=== PATIENT | male | born 1985 | race Caucasian/White ===

== ENCOUNTER 2024-04-27 17:22 | Inpatient (IN) | payer SELFPAY ==
[2024-04-27] MEDS: Diltiazem 25 MG/5 ML SDV IVPUSH ONE ×2 (18:30→19:08)
[2024-04-27] MEDS: Piperacillin/Tazobactam 4.5 GM in Sodium Chloride 0.9% 100 ML IV ONE (18:35)
[2024-04-27] MEDS: Sodium Chloride 0.9% 1,000 ML IV ONE (18:36)
[2024-04-27 18:40] LABS: BASOPHILS ABSOLUTE AUTO 0.1 K/mm3 (0.0-0.2); BASOPHILS PERCENT AUTO 0.4 % (0.0-1.0); EOSINOPHILS PERCENT AUTO 0.3 % (0.0-6.0); HEMATOCRIT 50.4 % (42.0-52.0); HEMOGLOBIN 17.5 gm/dl (14.0-18.0); IMMATURE GRAN ABSOLUTE AUTO 0.06 K/mm3 (0.00-0.05); IMMATURE GRAN PERCENT AUTO 0.4 % (0.0-0.4); LYMPHOCYTES ABSOLUTE AUTO 1.6 K/mm3 (1.0-4.8); LYMPHOCYTES PERCENT AUTO 10.5 % (24.0-44.0); MEAN CORPUSCULAR HEMOGLOBIN 30.7 pg (28.0-32.0); MEAN CORPUSCULAR HGB CONC 34.7 g/dl (32.0-36.0); MEAN CORPUSCULAR VOLUME 88.4 fl (83.0-99.0); MEAN PLATELET VOLUME 12.3 fl (9.4-12.4); MONOCYTES ABSOLUTE AUTO 1.1 K/mm3 (0.0-0.8); MONOCYTES PERCENT AUTO 7.1 % (0.0-8.0); NEUTROPHILS ABSOLUTE AUTO 12.7 K/mm3 (1.8-7.7); NEUTROPHILS PERCENT AUTO 81.3 % (41.0-71.0); PLATELET COUNT,PLT 279 K/mm3 (150-400)
[2024-04-27] MEDS: Lactated Ringers 1,000 ML IV ONE (18:54)
[2024-04-27 19:08] LABS: INR 1.13; PROTHROMBIN TIME 11.9 SECONDS (9.7-12.0)
[2024-04-27 19:09] LABS: PTT,PARTIAL THROMBOPLSTIN TIME 26.4 SECONDS (21.7-31.4)
[2024-04-27] MEDS: Sodium Chloride 0.9% 10 ML Syringe FLUSH PRN (19:09)
[2024-04-27 19:12] LABS: LACTIC ACID 1.1 mmol/L (0.4-2.0)
[2024-04-27 19:19] LABS: A/G RATIO 1.1 (1-2); ALBUMIN 3.3 g/dl (3.4-5.0); ANION GAP 13.6 (5-15); BILIRUBIN TOTAL 1.5 mg/dL (0.2-1.0); BUN/CREATININE RATIO 14.2 (14-18); CALCIUM 8.5 mg/dL (8.5-10.1); CREATININE 1.2 mg/dL (0.7-1.3); EST CRCL DRUG DOSING (CG) 91.83 mL/min; POTASSIUM,K 3.6 mEq/L (3.5-5.1); PROTEIN TOTAL,TP 6.3 g/dl (6.4-8.2); TSH 1.584 uIU/mL (0.358-3.74)
[2024-04-27] MEDS ORDERED: Ondansetron 4 MG Tab.DIS PO PRN (19:57)
[2024-04-27] MEDS: Diltiazem 125 MG in Sodium Chloride 0.9% 100 ML IV SCH (20:02)
[2024-04-27] MEDS ORDERED: Sodium Chloride 0.9% 1,000 ML IV SCH (20:15)
[2024-04-27] MEDS: VANCOmycin 1.5 GM/300 ML 300 ML IV SCH (23:06)
[2024-04-28] MEDS: Albuterol/Ipratropium 3.0-0.5 MG/3 ML Neb Soln NEB PRN (00:10)
[2024-04-28] MEDS: guaiFENesin 600 MG Tab.ER PO ONE (01:17)
[2024-04-28] MEDS: oxyCODONE 5 MG Tab PO PRN (01:17)
[2024-04-28 05:02] LABS: BASOPHILS ABSOLUTE AUTO 0.1 K/mm3 (0.0-0.2); BASOPHILS PERCENT AUTO 0.4 % (0.0-1.0); EOSINOPHILS PERCENT AUTO 0.1 % (0.0-6.0); HEMOGLOBIN 17.8 gm/dl (14.0-18.0); IMMATURE GRAN ABSOLUTE AUTO 0.07 K/mm3 (0.00-0.05); IMMATURE GRAN PERCENT AUTO 0.4 % (0.0-0.4); LYMPHOCYTES ABSOLUTE AUTO 1.4 K/mm3 (1.0-4.8); LYMPHOCYTES PERCENT AUTO 7.8 % (24.0-44.0); MEAN CORPUSCULAR HEMOGLOBIN 30.8 pg (28.0-32.0); MEAN CORPUSCULAR HGB CONC 34.9 g/dl (32.0-36.0); MEAN CORPUSCULAR VOLUME 88.2 fl (83.0-99.0); MEAN PLATELET VOLUME 12.9 fl (9.4-12.4); MONOCYTES ABSOLUTE AUTO 1.4 K/mm3 (0.0-0.8); MONOCYTES PERCENT AUTO 7.5 % (0.0-8.0); NEUTROPHILS ABSOLUTE AUTO 15.1 K/mm3 (1.8-7.7); NEUTROPHILS PERCENT AUTO 83.8 % (41.0-71.0); PLATELET COUNT,PLT 273 K/mm3 (150-400); RED BLOOD CELL COUNT 5.78 M/mm3 (4.52-5.90); WHITE BLOOD CELL COUNT,WBC 18.02 K/mm3 (3.9-11.3)
[2024-04-28 05:30] LABS: ALBUMIN 3.1 g/dl (3.4-5.0); ANION GAP 15.9 (5-15); BILIRUBIN TOTAL 1.9 mg/dL (0.2-1.0); BUN/CREATININE RATIO 12.3 (14-18); C-REACTIVE PROTEIN 0.97 mg/dL (<0.30); CALCIUM 8.3 mg/dL (8.5-10.1); CREATININE 1.3 mg/dL (0.7-1.3); EST CRCL DRUG DOSING (CG) 84.76 mL/min; POTASSIUM,K 3.9 mEq/L (3.5-5.1); PROTEIN TOTAL,TP 6.3 g/dl (6.4-8.2)
[2024-04-28 08:37] LABS: APPEARANCE,URINE CLEAR (Clear); BILIRUBIN,URINE 1+ (Negative); COLOR,URINE DARK YELLOW (Yellow); GLUCOSE,URINE NEGATIVE (Negative); KETONES,URINE 2+ (Negative); LEUKOCYTE ESTERASE,URINE NEGATIVE (Negative); NITRITE,URINE NEGATIVE (Negative); OCCULT BLOOD,URINE NEGATIVE (Negative); PH,URINE 5.5 (5.0-8.0); PROTEIN,URINE TRACE (Negative)
[2024-04-28 08:44] LABS: BARBITURATE SCREEN,URINE NEGATIVE (CUTOFF=200); BENZODIAZEPINES SCREEN,URINE NEGATIVE (CUTOFF=150); BUPRENORPHINE SCREEN,URINE NEGATIVE (CUTOFF=10); METHADONE SCREEN, URINE NEGATIVE (CUT0FF=200); METHAMPHETAMINES SCREEN, URINE NEGATIVE (CUTOFF=500); OXYCODONE SCREEN,URINE PRESUMPTIVE POSITIVE (CUT0FF=100); THC SCREEN,URINE 20 NG/ML NEGATIVE (CUTOFF=50)
[2024-04-28 08:49] LABS: AMPHETAMINES SCREEN, URINE NEGATIVE (CUTOFF=500)
[2024-04-28] MEDS ORDERED: VANCOmycin 1.25 GM/250 ML 1.25 GM in Premix Bag 1 BAG IV SCH (09:00)
[2024-04-28 09:38] LABS: BACTERIA,URINE FEW /hpf (FEW); EPITHELIAL CELLS,URINE 0-5 /hpf (0-5); MUCUS,URINE FEW /hpf (FEW); RBC,URINE 0-5 /hpf (0-5); WBC,URINE 0-5 /hpf (0-5)
[2024-04-28] MEDS: Piperacillin/Tazobactam 4.5 GM in Sodium Chloride 0.9% 100 ML IV SCH (10:05)
[2024-04-28] MEDS: Enoxaparin 40 MG/0.4 ML Syringe SUBCUT SCH (10:05)
[2024-04-28] MEDS: Acetaminophen 325 MG Tab PO PRN (10:25)
[2024-04-28] MEDS: VANCOmycin 1.25 GM/250 ML 1.25 GM in Premix Bag 1 BAG IV SCH (10:26)
[2024-04-28] MEDS: Heparin Sodium 5,000 Units/ML Vial IVPUSH ONE (14:55)
[2024-04-28] MEDS: Morphine 2 MG/ML SYRINGE IVPUSH PRN (14:55)
[2024-04-28] MEDS: Heparin Sodium/D5W 25,000 UNITS/500 ML BAG IV SCH (14:56)
[2024-04-28 15:01] LABS: BASE EXCESS ARTERIAL -5.2 (-2-2.0); BICARBONATE,ARTERIAL 17.1 meq/L (22.0-26.0); O2 SATURATION ARTERIAL 89.4 % (96.0-97.0); PCO2 ARTERIAL 27.1 mmHg (35.0-45.0)
[2024-04-28] MEDS: Benzocaine/Cetylpyridinium/Menthol Lozenge MUCMEM PRN (15:25)
[2024-04-28] MEDS: Benzonatate 100 MG Cap PO PRN (15:25)
[2024-04-28] MEDS: LORazepam 2 MG/ML SDV IVPUSH ONE ×2 (16:53→20:45)
[2024-04-28] MEDS: LORazepam 2 MG/ML SDV ONE (16:54)
[2024-04-28] MEDS: Furosemide 20 MG/2 ML VIAL IVPUSH ONE (18:00)
[2024-04-28] MEDS: LORazepam 2 MG/ML SDV IVPUSH PRN (19:56)
[2024-04-28] MEDS: Furosemide 40 MG/4 ML VIAL IVPUSH STA (20:24)
[2024-04-28 21:08] LABS: BASE EXCESS ARTERIAL -5.9 (-2-2.0); BICARBONATE,ARTERIAL 16.7 meq/L (22.0-26.0); O2 SATURATION ARTERIAL 94.9 % (96.0-97.0); PCO2 ARTERIAL 27.6 mmHg (35.0-45.0)
[2024-04-28] MEDS: Etomidate 2 MG/ML 20 ML SDV IVPUSH STA (21:10)
[2024-04-28] MEDS: Succinylcholine 200 MG/10 ML MDV IVPUSH ONE (21:10)
[2024-04-28] MEDS: Ketamine 500 MG in Sodium Chloride 0.9% 490 ML IV SCH (22:15)
[2024-04-28] MEDS: Phenylephrine 10 MG in Sodium Chloride 0.9% 99 ML IV SCH (23:13)
[2024-04-28 23:16] LABS: BASE EXCESS ARTERIAL -8.7 (-2-2.0); BICARBONATE,ARTERIAL 14.9 meq/L (22.0-26.0); PCO2 ARTERIAL 27.7 mmHg (35.0-45.0)
[2024-04-28] MEDS: propofoL 100 ML IV SCH (23:16)
[2024-04-29] MEDS: LORazepam 2 MG/ML SDV ONE (00:37)
[2024-04-29] MEDS: guaiFENesin 600 MG Tab.ER PO SCH (00:37)
[2024-04-29] MEDS: Benzocaine 20% Topical Spray UD MUCMEM ONE (00:52)
[2024-04-29] MEDS: Ketamine 500 mg/10 ML MDV ONE (01:06)
[2024-04-29] MEDS: Sodium Chloride 0.9% 500 ML ONE (01:06)
== END 2024-04-29 00:25 | DRG 871 ==
LOC: JD.ED 17:22 → JD.ICU 19:40
PROVIDERS: ADMIT Family Medicine; ATTEND Family Medicine
PROC: 3E03329 Introduction of Other Anti-infective into Peripheral Vein, Percutaneous Approach (ICD-10-PCS; 2024-04-27)
PROC: 5A1935Z Respiratory Ventilation, Less than 24 Consecutive Hours (ICD-10-PCS; principal; 2024-04-28)
PROC: 5A09357 Assistance with Respiratory Ventilation, Less than 24 Consecutive Hours, Continuous Positive Airway Pressure (ICD-10-PCS; 2024-04-28)
PROC: 0BH17EZ Insertion of Endotracheal Airway into Trachea, Via Natural or Artificial Opening (ICD-10-PCS; 2024-04-28)
DX: A41.9 Sepsis, unspecified organism (principal); I50.21 Acute systolic (congestive) heart failure; J18.9 Pneumonia, unspecified organism; J80 Acute respiratory distress syndrome; I48.91 Unspecified atrial fibrillation; Z79.01 Long term (current) use of anticoagulants
CPT/HCPCS: 31500; 36415; 36600; 51702; 71045; 71045-26; 80053; 80179; 80202; 80306; 80307; 81001; 82803; 83605; 83690; 83735; 83880; 84443; 84484; 85025; 85379; 85610; 85730; 86140; 87040; 87070; 87081; 87205; 87899; 93005; 93010; 93306; 94002; 94640; 94660; 96365; 96375; 96376; 99223; 99233; 99239; 99285; 99285-25; A9270-GY; J0282; J0330; J1644; J1650; J1940; J2060; J2270; J2371; J2543; J2704; J3372; J3490; J7040; J7620-GY